=== PATIENT | female | born 1930 | race Caucasian/White ===

== ENCOUNTER → 2016-12-17 | Outpatient (CLI) | payer MEDICARE, BC ==
[~2016-12-17] MED LIST: AUGMENTIN TAB875 MG PO; AZITHROMYCIN250 MG PO; BUSPAR 5MG TABLE5 MG PO; CEFDINIR300 MG PO; FOSINOPRIL SODI20 MG PO; GLUCOTROL5 MG PO; NORVASC 5 MG TAB5 MG PO; SIMVASTATIN20 MG PO; TYLENOL 325MG325 MG PO
== END ==
LOC: EMI 08:52
DX: H90.3 Sensorineural hearing loss, bilateral (principal); J34.89 Other specified disorders of nose and nasal sinuses
CPT/HCPCS: 70551

== ENCOUNTER 2016-12-26 16:40 | Inpatient (IN) | payer MEDICARE, BC ==
[~2016-12-26] VITALS: Ht 167.6 cm; Wt 57.6 kg
[2016-12-26 17:51] LABS: RED BLOOD COUNT 4.51 M/UL (4.00-5.10)
[2016-12-26 17:57] LABS: WHITE BLOOD COUNT 15.8 K/UL (4.5-11.0)
[2016-12-27] MEDS ORDERED: FOSINOPRIL SODI20 MG PO (01:31)
[2016-12-27] MEDS ORDERED: NORVASC 5 MG TAB5 MG PO (01:32)
[2016-12-27] MEDS ORDERED: GLUCOTROL5 MG PO (01:32)
[2016-12-27] MEDS ORDERED: SIMVASTATIN20 MG PO (01:32)
[2016-12-27] MEDS ORDERED: BUSPAR 5MG TABLE5 MG PO (01:33)
[2016-12-27] MEDS ORDERED: AZITHROMYCIN250 MG PO (01:35)
[2016-12-27] MEDS ORDERED: CEFDINIR300 MG PO (01:35)
[2016-12-27 06:15] LABS: HEMOGLOBIN 12.1 gm/dl (12.3-15.3); WHITE BLOOD COUNT 12.4 K/UL (4.5-11.0)
[2016-12-27 06:22] LABS: RED BLOOD COUNT 3.95 M/UL (4.00-5.10)
[2016-12-28 04:31] LABS: HEMOGLOBIN 12.9 gm/dl (12.3-15.3); RED BLOOD COUNT 4.17 M/UL (4.00-5.10); WHITE BLOOD COUNT 10.1 K/UL (4.5-11.0)
[2016-12-29 05:48] LABS: HEMOGLOBIN 12.9 gm/dl (12.3-15.3); RED BLOOD COUNT 4.15 M/UL (4.00-5.10)
[2016-12-29] MEDS ORDERED: TYLENOL 325MG325 MG PO (15:40)
[2016-12-29] MEDS ORDERED: AUGMENTIN TAB875 MG PO (15:43)
== END 2016-12-29 16:47 | disposition home or self-care (01) | DRG 391 ==
LOC: ER1 16:40 → ZEROF 23:24 → MED SURG 4 23:24
PROVIDERS: Emergency Medicine; Family Medicine; Internal Medicine Infectious Disease; ADMIT Internal Medicine
DX: A08.4 Viral intestinal infection, unspecified (principal); J69.0 Pneumonitis due to inhalation of food and vomit; E87.1 Hypo-osmolality and hyponatremia; J98.11 Atelectasis; T36.3X5A Adverse effect of macrolides, initial encounter; E86.0 Dehydration; E11.9 Type 2 diabetes mellitus without complications; Y92.009 Unspecified place in unspecified non-institutional (private) residence as the place of occurrence of the external cause; E04.2 Nontoxic multinodular goiter; I10 Essential (primary) hypertension; J47.9 Bronchiectasis, uncomplicated; Z79.84 Long term (current) use of oral hypoglycemic drugs; Z79.899 Other long term (current) drug therapy
CPT/HCPCS: 36415; 70450; 71010; 71020; 71250; 74230; 76536; 76705; 80048; 80053; 81001; 82150; 82550; 82553; 82962; 83036; 83605; 83690; 83874; 83930; 84295; 84439; 84443; 84484; 85025; 85027; 87040; 92611-GN; 93005; 94664; 96374; 96375; 99285; C9113; J0456; J0696; J1956; J2405; J7030

== ENCOUNTER 2016-12-29 20:18 | Inpatient (IN) | payer MEDICARE, BC ==
[~2016-12-29] VITALS: Ht 167.6 cm; Wt 57.6 kg
[2016-12-29 21:34] LABS: HEMOGLOBIN 13.3 gm/dl (12.3-15.3); RED BLOOD COUNT 4.25 M/UL (4.00-5.10)
[2016-12-29 21:35] LABS: WHITE BLOOD COUNT 22.6 K/UL (4.5-11.0)
[2016-12-30 01:23] LABS: HEMOGLOBIN 13.6 gm/dl (12.3-15.3); RED BLOOD COUNT 4.35 M/UL (4.00-5.10)
[2016-12-30 09:04] LABS: HEMOGLOBIN 12.5 gm/dl (12.3-15.3); WHITE BLOOD COUNT 17.6 K/UL (4.5-11.0)
[2016-12-31 05:50] LABS: HEMOGLOBIN 12.9 gm/dl (12.3-15.3); RED BLOOD COUNT 4.17 M/UL (4.00-5.10); WHITE BLOOD COUNT 18.9 K/UL (4.5-11.0)
[2017-01-01 05:30] LABS: HEMOGLOBIN 11.2 gm/dl (12.3-15.3)
[2017-01-01 05:31] LABS: RED BLOOD COUNT 3.64 M/UL (4.00-5.10); WHITE BLOOD COUNT 12.4 K/UL (4.5-11.0)
[2017-01-03 06:08] LABS: HEMOGLOBIN 12.5 gm/dl (12.3-15.3)
[2017-01-03 06:14] LABS: RED BLOOD COUNT 4.04 M/UL (4.00-5.10); WHITE BLOOD COUNT 9.2 K/UL (4.5-11.0)
--- NOTE | 2017-01-03 19:34 | NUR ---
CURRENTLY PATIENT IS RESTING WITH NO S/S OF PAIN OR RESPIRATORY DISTERESS. WENT DOWN FOR THYROID BX TODAY. WILL CONTINUE TO MONITOR.
[2017-01-05 06:05] LABS: HEMOGLOBIN 11.6 gm/dl (12.3-15.3); RED BLOOD COUNT 3.82 M/UL (4.00-5.10); WHITE BLOOD COUNT 9.2 K/UL (4.5-11.0)
== END 2017-01-05 16:20 | DRG 194 ==
LOC: ER1 20:18 → M/S 12-30 02:10 → ZEROF 12-30 02:10 → M/S 12-30 17:24
PROVIDERS: Emergency Medicine; Internal Medicine; Internal Medicine Infectious Disease; ADMIT Hospitalist
PROC: 0GBH3ZX Excision of Right Thyroid Gland Lobe, Percutaneous Approach, Diagnostic (ICD-10-PCS; principal; 2017-01-03)
DX: J18.9 Pneumonia, unspecified organism (principal); N17.9 Acute kidney failure, unspecified; A68.9 Relapsing fever, unspecified; E87.1 Hypo-osmolality and hyponatremia; Q61.02 Congenital multiple renal cysts; M41.34 Thoracogenic scoliosis, thoracic region; M54.9 Dorsalgia, unspecified; R91.8 Other nonspecific abnormal finding of lung field; I10 Essential (primary) hypertension; E11.9 Type 2 diabetes mellitus without complications; F03.90 Unspecified dementia, unspecified severity, without behavioral disturbance, psychotic disturbance, mood disturbance, and anxiety; R53.1 Weakness; E04.2 Nontoxic multinodular goiter; I49.3 Ventricular premature depolarization; M47.814 Spondylosis without myelopathy or radiculopathy, thoracic region; M17.0 Bilateral primary osteoarthritis of knee; M19.072 Primary osteoarthritis, left ankle and foot; M19.071 Primary osteoarthritis, right ankle and foot; H91.90 Unspecified hearing loss, unspecified ear; Z79.1 Long term (current) use of non-steroidal anti-inflammatories (NSAID); Z79.4 Long term (current) use of insulin; Z79.899 Other long term (current) drug therapy; K59.00 Constipation, unspecified; M50.322 Other cervical disc degeneration at C5-C6 level; M50.323 Other cervical disc degeneration at C6-C7 level
CPT/HCPCS: ECHO; 10022; 36415; 51702; 70450; 71010; 71020; 71250; 72141; 72146; 74230; 76536; 76705; 80048; 80053; 81001; 82150; 82550; 82553; 82962; 83036; 83605; 83690; 83735; 83874; 83930; 84295; 84439; 84443; 84484; 85025; 85027; 86140; 87040; 87086; 92611-GN; 93005; 93306; 94664; 96365; 96374; 96375; 97110; 97116; 99285; C9113; J0456; J0696; J1650; J1815; J1956; J2405; J2543; J7030; J7050